=== PATIENT | female | born 1950 | race Caucasian/White ===

== ENCOUNTER 2022-01-25 13:57 | Emergency (ER) | payer MEDICARE, BC ==
[2022-01-25 14:05] VITALS: BP 167/97
--- NOTE | 2022-01-25 14:37 | XRAY Report ---
PROCEDURE: Humerus LT INDICATIONS: Trauma TECHNIQUE: 2 views of the humerus were acquired. COMPARISON: X-ray shoulder 01/26/2022 FINDINGS: Bones: There is a poorly visualized lucency traversing the mid humeral head. Cortical irregularity is also present. No suspicious bony lesions. Soft tissues: No suspicious soft tissue calcifications. IMPRESSION: Poorly visualized nondisplaced lucency as well as slight cortical irregularity most suspicious for no ndisplaced humeral head fracture. Reviewed by: Galilea Abbott MD on 01/25/2022 2:36 PM PDT Approved by: Galilea Abbott MD on 01/25/2022 2:36 PM PDT Station ID: [id number]
--- NOTE | 2022-01-25 14:38 | XRAY Report ---
PROCEDURE: Shoulder 3 View LT INDICATIONS: injury TECHNIQUE: 30 views of the shoulder were acquired. COMPARISON: X-ray humerus 01/25/2022 FINDINGS: Bones: There is a nondisplaced lucency with cortical irregularity of the humeral head. No suspicious bony lesions. Visualized ribs appear intact. Soft tissues: No suspicious soft tissue calcifications. IMPRESSION: Nondisplaced lucency with cortical irregularity most consistent with humeral head fractu re. Reviewed by: Galilea Abbott MD on 01/25/2022 2:36 PM PDT Approved by: Galilea Abbott MD on 01/25/2022 2:36 PM PDT Station ID: [id number]
--- NOTE | 2022-01-25 15:09 | ED Physician Documentation ---
PD HPI UPPER EXT INJURY - Stated complaint Stated Complaint: LT ARM PX - Chief complaint Chief Complaint: Trauma Ext - History obtained from History obtained from: Patient - History of Present Illness Location: Left, Shoulder Type of injury: Fall (bending over to hand picker object in garage and fell off lower step onto left shoulder.) Where injury occurred: Home Timing - onset: How many days ago (5) Timing - duration: Days (5) Timing - details: Abrupt onset, Still present Associated symptoms: Swelling, Discolored (bruising of medial upper arm that has tracked down to elbow area (without pain in elbow per se).). 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 : None HEENT: None Psych: None Musculoskeletal: None Derm: None - Past Surgical History Past Surgical History: Yes /CONTACT CENTER ENGINEER: Breast reduction, Other - Present Medications Home Medications: Ambulatory Orders Medication Instructions Recorded Confirmed Anastrozole 1 mg ORAL DAILY 01/25/22 01/25/22 Cholecalciferol [Vitamin D3] 25 mcg PO DAILY 01/25/22 01/25/22 Cranberry Fruit Extract [Cranberry] 500 mg PO DAILY 01/25/22 01/25/22 HYDROcod/ACETAM 5/325 [[place] 5/325] 1 ea PO Q6H PRN #15 tablet 01/25/22 Hydroxychloroquine [Plaquenil] 200 mg PO DAILY 01/25/22 01/25/22 Lisinopril [Zestril] 10 mg PO DAILY 01/25/22 01/25/22 Omeprazole Magnesium 20 mg PO DAILY 01/25/22 01/25/22 allopurinoL [Zyloprim] 100 mg PO DAILY 01/25/22 01/25/22 - Allergies Allergies/Adverse Reactions: Allergies Allergy/AdvReac Type Severity Reaction Status Date / Time No Known Drug Allergies Allergy Verified 01/25/22 14:00 - Social History Does the pt smoke?: No Smoking Status: Never smoker Does the pt drink ETOH?: No Does the pt have substance abuse?: No - Immunizations Immunizations are current?: Yes PD ED PE NORMAL - Vitals Vital signs reviewed: Yes - General General: Alert and oriented X 3, No acute distress, Well developed/nourished - HEENT HEENT: Atraumatic - Neck Neck: Supple, no meningeal sign, No bony TTP - Derm Derm: Normal color, Warm and dry - Extremities Extremities: Other (left shoulder with tenderness lateral aspect. Passive ROM of the shoulder does not hurt much. active ROm painful for rotation and abduction, not as bad for extension. purple to yellow ecchymosis noted medial and posterior upper arm proximally and extended posteriorly to below elbow. elbow n/t.) - Neuro Neuro: Alert and oriented X 3, No motor deficit, No sensory deficit, Normal speech Results - Vitals Vitals: Oxygen O2 Source Room air - Rads (name of study) left shoulder Radiology: Prelim report reviewed (linear lucency proximal humerus at head. Likely fracture of head. ), EMP read contemporaneously (the location of fracture could be humeral head versus greater tubercle. ), See rad report PD MEDICAL DECISION MAKING - ED course Complexity details: reviewed results (5 days after injury with some ROM of the shoulder without pain, but limited for rotation and lifting. Can treat with sling. Consider tuberble fracture rather than ball but still needs immobilization and ortho followup. ), considered differential, d/w patient Departure - Departure Disposition: 01 Home, Self Care Clinical Impression: Fracture of humeral head Qualifiers: Encounter type: initial encounter Fracture type: closed Laterality: left Qualified Code(s): S42.292A - Other displaced fracture of upper end of left humerus, initial encounter for closed fracture Accidental fall Qualifiers: Encounter type: initial encounter Qualified Code(s): W19.XXXA - Unspecified fall, initial encounter Condition: Stable Record reviewed to determine appropriate education?: Yes Instructions: ED Fx Shoulder Follow-Up: Orthopedic Care [Provider Group] Prescriptions: HYDROcod/ACETAM 5/325 [[place] 5/325] 1 ea PO Q6H PRN #15 tablet PRN Reason: Pain Comments: Your x-ray shows what appears to be at nondisplaced fracture of either the greater tubercle or the humeral head. This would get treated conservatively with use of a sling for approximately 3 to 4 weeks. No overhead reaching, lifting, push pull until improved. Would make sense to recheck again in a week or so with orthopedics to ensure it still healing well and see what advancement you can have an activity. Use Tylenol 500 mg 4 times daily for pain or add/substitute hydrocodone with acetaminophen if needed for worse pain. I sent your prescription to your preferred pharmacy. I am prescribing a short course of narcotic pain medication for you. These are potentially dangerous and addictive medications that should be used carefully. These medications may constipate you. Take an tgme-vrb-tvolyxn stool softener such as docusate twice daily with plenty of water while taking these medications. If you go 24 hours without a bowel movement, take lgvd-[id number]-mosanvx MiraLAX, per package instructions. Do not drink or drive while taking these medications. If you received narcotic or sedating medications while in the emergency department do not drive for 24 hours. Store this medication in a safe, secure place and out of reach of children. It is a violation of federal law to give or sell this medication to another person or to use in a manner other than prescribed. The ED will not refill narcotic prescriptions, including prescriptions lost or stolen. You can dispose of unwanted medications at the [facility]'s office or at several pharmacies such as [facility]. Discharge Date/Time: 01/25/22 15:41
[2022-01-25] MEDS ORDERED: HYDROcod/ACETAM 5/325 MG TABLET PO STA (15:31)
== END 2022-01-25 15:41 | disposition home or self-care (01) ==
LOC: ED 13:57
DX: S42.295A Other nondisplaced fracture of upper end of left humerus, initial encounter for closed fracture (principal); W10.8XXA Fall (on) (from) other stairs and steps, initial encounter; Y92.008 Other place in unspecified non-institutional (private) residence as the place of occurrence of the external cause; M32.9 Systemic lupus erythematosus, unspecified
CPT/HCPCS: 73030; 73060; 99283; A9270

== ENCOUNTER 2022-02-03 08:00 | Outpatient (CLI) | payer MEDICARE, BC ==
--- NOTE | 2022-02-03 16:41 | XRAY Report ---
PROCEDURE: Shoulder 3 View LT INDICATIONS: LET SHOULDER PAIN TECHNIQUE: 2 views of the shoulder were acquired. COMPARISON: 01/25/2022. FINDINGS: Bones: There is a slightly displaced fracture involving base of greater tuberosity with minimal later al displacement at fracture site. No other fracture or dislocation is seen. Mild to moderate acromioc lavicular joint and glenohumeral joint osteoarthritic changes are seen. No suspicious bony lesions. Visualized ribs appear intact. Soft tissues: No suspicious soft tissue calcifications. Surgical clips are noted in left axilla. IMPRESSION: Slightly displaced fracture involving base of greater tuberosity as above. Left shoulder joint osteoarthritis. No other fracture or dislocation. Reviewed by: Dewayne Holloway MD on 02/03/2022 4:40 PM PDT Approved by: Dewayne Holloway MD on 02/03/2022 4:40 PM PDT Station ID: [id number]
== END 2022-02-03 23:59 | disposition home or self-care (01) ==
LOC: DI.WOS 08:00
PROVIDERS: ATTEND Orthopaedic Surgery
DX: S42.252A Displaced fracture of greater tuberosity of left humerus, initial encounter for closed fracture (principal); M19.012 Primary osteoarthritis, left shoulder

== ENCOUNTER 2022-02-24 16:16 | Outpatient (CLI) | payer MEDICARE, BC ==
--- NOTE | 2022-02-24 17:06 | XRAY Report ---
PROCEDURE: Shoulder 2 View LT INDICATIONS: LEFT SHOULDER FRACTURE TECHNIQUE: 2 views of the shoulder were acquired. COMPARISON: Reviews of the left shoulder dated 02/03/2022. FINDINGS: Bones: No callus yet visualized at the proximal left humeral fracture. Bones are in unchanged anatomi c alignment. Soft tissues: No suspicious soft tissue calcifications. IMPRESSION: Stable left humeral head fracture. No callus yet visualized. Reviewed by: Mimi Wilson MD on 02/24/2022 5:05 PM [facility] Approved by: Mimi Wilson MD on 02/24/2022 5:05 PM [facility] Station ID: [id number]
== END 2022-02-24 16:17 | disposition home or self-care (01) ==
LOC: DI.WOS 16:16
PROVIDERS: ATTEND Orthopaedic Surgery
DX: S42.222D 2-part displaced fracture of surgical neck of left humerus, subsequent encounter for fracture with routine healing (principal)